=== PATIENT | male | born 1990 | race Asian ===

== ENCOUNTER 2017-05-12 23:28 | Emergency (ER) | payer OTHER ==
[2017-05-12 23:56] LABS: Hematocrit 44 % (42-52); Hemoglobin 14.6 g/dl (14.0-18.0); Mean Corpuscular HGB Conc 33 g/dl (31-36); Mean Corpuscular Hemoglobin 27 pg (27-31); Mean Corpuscular Volume 81 fL (80-94); Mean Platelet Volume 7 um3 (7.4-10.4); Red Blood Count 5.42 10^6/ul (4.0-5.4); Red Cell Distribution Width 14 % (10.5-15)
[2017-05-13 00:18] LABS: BUN/Creatinine Ratio 13.6 (8-20); C Reactive Protein 1.11 mg/L (< 5.00); Calcium 9.7 mg/dL (8.6-10.3); EGFR African American 111.4 (>60); EGFR Non-African American 86.6 (>60); Globulin 2.9 g/dL (2-4); Potassium 3.7 mmol/L (3.5-5.0); Total Bilirubin 0.3 mg/dL (0.2-1.0); Total Protein 6.9 g/dL (6.4-8.9)
--- NOTE | 2017-05-13 00:28 | ED ---
Abdominal Pain/Male - HPI Summary HPI Summary: Pt here w/ diarrhea x 2 weeks and now hematochezia. Associated sx of lower ab discomfort and hyperactive bowels. Has to move bowels within 30 minutes of eating/drinking - non painful. Denies fever, chills, nausea, vomiting, rectal pain/tenderness, trauma to the area by sexual means or other. Urinating well w/ o dysuria, hesitation, flank pain. He denies change in diet and in fact, went a couple of days w/o dairy - no change and when he returned to diary by drinking milk, sx were not worse. He has not tried avoiding gluten yet. Denies preceding h/o anbx use, sick contacts, etc. He was last out of the country to [place] 10 months ago - reports he did have some fever when he initially returned but no bowel issues and this dissipated w/o associated sx. He's been seen by [facility] and stool cx's were ordered. Pt reveals results and appears he was tested for ova, parasites, cryptosporidium, giardia, salmonella, and shigella all negative. Labs are also w/o acute findings of hepatitis, hemorrhage (H&H stable), etc. He has not been tested for c. diff - will assess if possible tonight. He is scheduled for a colonoscopy next week with Dr. Post. Was told if things get worse to go to ED - he came because he is concerned about bleeding. - History of Current Complaint Chief Complaint: EDRectalPain Stated Complaint: BLOOD IN STOOL Time Seen by Provider: 05/12/17 23:37 Hx Obtained From: Patient, Family/Site Supervising Technical Operator - roommate Pain Intensity: 1 - Allergies/Home Medications Allergies/Adverse Reactions: Allergies Allergy/AdvReac Type Severity Reaction Status Date / Time No Known Allergies Allergy Verified 05/12/17 23:33 PMH/Surg Hx/FS Hx/Imm Hx Previously Healthy: Yes Endocrine/Hematology History: Denies: Hx Anticoagulant Therapy, Hx Blood Disorders, Hx Thyroid Disease, Hx Anemia, Hx Unexplained Bleeding, Autoimmune Disease GI History: Denies: Hx Cirrhosis, Hx Crohn's Disease, Hx Diverticulosis, Hx Gall Bladder Disease, Hx Gastroesophageal Reflux Disease, Hx Gastrointestinal Bleed, Hx Hiatal Hernia, Hx Irritable Bowel, Hx Ulcer Infectious Disease History: No Infectious Disease History: Denies: Traveled Outside the [place] in Last 30 Days - Family History Known Family History: Positive: None - no GI issues - Social History Occupation: Student Lives: Dormitory/Roommates Alcohol Use: Rare Hx Substance Use: No Substance Use Type: Reports: None Hx Tobacco Use: No Smoking Status (MU): Never Smoked Tobacco Review of Systems Constitutional: Negative Negative: Fever, Chills, Fatigue - feels well overall Cardiovascular: Negative Negative: Palpitations, Chest Pain Respiratory: Negative Negative: Shortness Of Breath Positive: Abdominal Pain, Diarrhea. Negative: Vomiting, Nausea Genitourinary: Negative Musculoskeletal: Negative Skin: Negative Negative: Bruising Neurological: Negative Negative: Headache, Weakness, Paresthesia, Numbness, Syncope Psychological: Normal All Other Systems Reviewed And Are Negative: Yes Physical Exam Triage Information Reviewed: Yes Vital Signs On Initial Exam: Initial Vitals Temp Pulse Resp BP Pulse Ox 98.0 F 86 15 174/76 99 05/12/17 23:30 05/12/17 23:30 05/12/17 23:30 05/12/17 23:30 05/12/17 23:30 Vital Signs Reviewed: Yes Appearance: Positive: Well-Appearing, No Pain Distress, Well-Nourished Skin: Positive: Warm, Dry - no bruising observed Head/Face: Positive: Normal Head/Face Inspection Eyes: Positive: Normal, EOMI, Conjunctiva Clear - pink ENT: Positive: Normal ENT inspection, Hearing grossly normal, Pharynx normal - mucosa moist, pink Neck: Positive: Supple - no gross thyromegaly Respiratory/Lung Sounds: Positive: Clear to Auscultation, Breath Sounds Present. Negative: Rales, Rhonchi, Wheezes Cardiovascular: Positive: Normal, RRR, S1, S2. Negative: Murmur, Rub Abdomen Description: Positive: No Organomegaly, Soft, Other: - B/L lower abdomen w/ mild TTP -no rebounding; rectum is clear of drainage and JENNYFER w/o palpable hemorrhoid, NTTP - pt's JENNYFER reveals pink mucousy d/c. Negative: CVA Tenderness (R), CVA Tenderness (L), Distended, Guarding Bowel Sounds: Positive: Present Musculoskeletal: Positive: Normal, Strength/ROM Intact Neurological: Positive: Normal, Sensory/Motor Intact, Alert, Oriented to Person Place, Time, CN Intact II-III Psychiatric: Positive: Normal - Harinder Coma Scale Coma Scale Total: 15 Diagnostics - Vital Signs Vital Signs Temp Pulse Resp BP Pulse Ox 05/12/17 23:30 98.0 F 86 15 174/76 99 - Laboratory Lab Results: Lab Results 05/12/17 05/12/17 05/12/17 Range/Units 23:45 23:45 23:45 WBC 7.0 (3.5-10.8) 10^3/ul RBC 5.42 H (4.0-5.4) 10^6/ul Hgb 14.6 (14.0-18.0) g/dl Hct 44 (42-52) % MCV 81 (80-94) fL MCH 27 (27-31) pg MCHC 33 (31-36) g/dl RDW 14 (10.5-15) % Plt Count 222 (150-450) 10^3/ul MPV 7 L (7.4-10.4) um3 Neut % (Auto) 47.0 (38-83) % Lymph % (Auto) 42.1 (25-47) % [place] % (Auto) 7.7 (1-9) % Eos % (Auto) 2.8 (0-6) % Baso % (Auto) 0.4 (0-2) % Absolute Neuts (auto) 3.3 (1.5-7.7) 10^3/ul Absolute Lymphs (auto) 2.9 (1.0-4.8) 10^3/ul Absolute Monos (auto) 0.5 (0-0.8) 10^3/ul Absolute Eos (auto) 0.2 (0-0.6) 10^3/ul Absolute Basos (auto) 0 (0-0.2) 10^3/ul Absolute Nucleated RBC 0 10^3/ul Nucleated RBC % 0 Sodium 142 (133-145) mmol/L Potassium 3.7 (3.5-5.0) mmol/L Chloride 108 (101-111) mmol/L Carbon Dioxide 29 (22-32) mmol/L Anion Gap 5 (2-11) mmol/L BUN 14 (6-24) mg/dL Creatinine 1.03 (0.67-1.17) mg/dL Est GFR ( Amer) 111.4 (>60) Est GFR (Non-Af Amer) 86.6 (>60) BUN/Creatinine Ratio 13.6 (8-20) Glucose 113 H (70-100) mg/dL Lactic Acid 1.1 (0.5-2.0) mmol/L Calcium 9.7 (8.6-10.3) mg/dL Total Bilirubin 0.30 (0.2-1.0) mg/dL AST 20 (13-39) U/L ALT 21 (7-52) U/L Alkaline Phosphatase 58 (34-104) U/L C-Reactive Protein 1.11 (< 5.00) mg/L Total Protein 6.9 (6.4-8.9) g/dL Albumin 4.0 (3.2-5.2) g/dL Globulin 2.9 (2-4) g/dL Albumin/Globulin Ratio 1.4 (1-3) Blood Type Antibody Screen 05/12/17 Range/Units 23:45 WBC (3.5-10.8) 10^3/ul RBC (4.0-5.4) 10^6/ul Hgb (14.0-18.0) g/dl Hct (42-52) % MCV (80-94) fL MCH (27-31) pg MCHC (31-36) g/dl RDW (10.5-15) % Plt Count (150-450) 10^3/ul MPV (7.4-10.4) um3 Neut % (Auto) (38-83) % Lymph % (Auto) (25-47) % [place] % (Auto) (1-9) % Eos % (Auto) (0-6) % Baso % (Auto) (0-2) % Absolute Neuts (auto) (1.5-7.7) 10^3/ul Absolute Lymphs (auto) (1.0-4.8) 10^3/ul Absolute Monos (auto) (0-0.8) 10^3/ul Absolute Eos (auto) (0-0.6) 10^3/ul Absolute Basos (auto) (0-0.2) 10^3/ul Absolute Nucleated RBC 10^3/ul Nucleated RBC % Sodium (133-145) mmol/L Potassium (3.5-5.0) mmol/L Chloride (101-111) mmol/L Carbon Dioxide (22-32) mmol/L Anion Gap (2-11) mmol/L BUN (6-24) mg/dL Creatinine (0.67-1.17) mg/dL Est GFR ( Amer) (>60) Est GFR (Non-Af Amer) (>60) BUN/Creatinine Ratio (8-20) Glucose (70-100) mg/dL Lactic Acid (0.5-2.0) mmol/L Calcium (8.6-10.3) mg/dL Total Bilirubin (0.2-1.0) mg/dL AST (13-39) U/L ALT (7-52) U/L Alkaline Phosphatase (34-104) U/L C-Reactive Protein (< 5.00) mg/L Total Protein (6.4-8.9) g/dL Albumin (3.2-5.2) g/dL Globulin (2-4) g/dL Albumin/Globulin Ratio (1-3) Blood Type A Positive Antibody Screen Pending Result Diagrams: 05/12/17 23:45 05/12/17 23:45 Lab Statement: Any lab studies that have been ordered have been reviewed, and results considered in the medical decision making process. Abdominal Pain Fem Course/Dx - Course Course Of Treatment: Pt here w/ hematochezia after 2 weeks of diarrhea. Has some mild Lower ab pain but no keith rectal pain. Has had labs and stools cx's through [facility] - no acute findings thus far. Pt is scheduled for a colonoscopy next week. Came tonight as he was told if he gets worse, to go to ED. He reports he feels pretty good overall, but was concerned about blood in stool. Labs here tonight are unremarkable for significant GI bleed, hepatitis, etc. A few tests were added tonight that have not yet been checked by [facility] - these include a c. diff stool cx and VERENA, ESR in the event pt has Crohn's, UC or celiac dz. Stool occult is positive. A CT was ordered and is pending to assess for colitis, mass, etc. Pt signed out to Dr. Villatoro in stable condition. - Diagnoses Provider Diagnoses: Hematochezia, Diarrhea Discharge - Discharge Plan Condition: Stable Disposition: OTHER Discharge Disposition Comment: signed out Referrals: [facility] - Yobani SHAH [Primary Care Provider] -
[2017-05-13 01:05] LABS: TSH (Thyroid Stimulating Horm) 7.27 mcIU/mL (0.34-5.60)
[2017-05-13 01:15] LABS: Erythrocyte Sed Rate 12 mm/Hr (0-14)
[2017-05-13] MEDS ORDERED: Iohexol 300* (CONTRAST) 10 ML SDV IV ONE (02:12)
[2017-05-13 02:33] LABS: Free T4 2.44 ng/dL (0.61-1.12)
[2017-05-13 03:32] LABS: Rapid HIV INT CONT QC Line Present; Rapid HIV Kit Lot# H080007
[2017-05-13 03:33] LABS: Manual Entry Verification ABI0007
[2017-05-13] MEDS ORDERED: Omeprazole CAP* 20 MG PO ONE (03:45)
--- NOTE | 2017-05-13 04:20 | ED ---
Perfecto Francois Tiffany, scribed for David Villatoro on 05/13/17 at 0353 . Progress - Progress Note Progress Note: CT Abd/Pel reveals, per radiologist, subpleural reticular-nodular pattern in the lung bases is nonspecific. These findings may reflect early fibrotic change related to drug reaction, or collagen vascular disease. A differential consideration would be small airways inflammation Correlation with history, prior studies, and pulmonary function is recommended. ED physician has reviewed this report. Course/Dx - Course Course Of Treatment: CT Abd/Pel reveals, per radiologist, subpleural reticular- nodular pattern in the lung bases is nonspecific. These findings may reflect early fibrotic change related to drug reaction, or collagen vascular disease. A differential consideration would be small airways inflammation Correlation with history, prior studies, and pulmonary function is recommended. Patient will be discharged with prescription for Protonix and follow up from Dr. Post ( gastroenterology) as soon as possible. The patient is agreeable with this plan. - Diagnoses Provider Diagnoses: Abdominal pain, Rectal bleeding The documentation as recorded by the Perfecto cabrera Tiffany accurately reflects the service I personally performed and the decisions made by Shauna hoover Emmanuel.
[2017-05-13 04:32] VITALS: BP 146/71
--- NOTE | 2017-05-13 08:06 | RAD ---
CLINICAL HISTORY: Diarrhea with hematochezia COMPARISON: None TECHNIQUE: Multiple contiguous axial CT scans were obtained of the abdomen and pelvis after the administration of intravenous contrast. Coronal and sagittal multiplanar reformations are submitted for review. Oral contrast was administered. Delayed images were obtained through the abdomen and pelvis. FINDINGS: LUNG BASES: There is a subpleural pattern of centrilobular nodularity. LIVER: The liver is normal in shape, size, contour, and attenuation. BILE DUCTS: There is no intrahepatic or extrahepatic biliary dilatation. GALLBLADDER: The gallbladder is incompletely distended but is grossly normal. PANCREAS: The pancreas is normal, without mass or ductal dilatation. SPLEEN: Normal in size and appearance. UPPER GI TRACT: Evaluation of the gastrointestinal tract is limited by incomplete gastric distention. The upper GI tract is unremarkable. SMALL BOWEL AND MESENTERY: The small bowel is normal in contour, course, and caliber. There is no obstruction or dilatation. COLON: The colon is normal in contour, course, caliber. There is no pericolonic inflammatory change. ADRENALS: Normal bilaterally. KIDNEYS: The kidneys are normal in shape, size, contour, and axis. There is no hydronephrosis or nephrolithiasis. BLADDER: The bladder is smooth in contour. PELVIC ORGANS: The prostate gland is normal. The seminal vesicles are symmetric. AORTA: The aorta is normal. IVC: Unremarkable LYMPH NODES: There is no lymphadenopathy by size criteria. ABDOMINAL WALL: There is no evidence for abdominal wall hernia. BONES AND SOFT TISSUES: The bones and soft tissues are unremarkable. OTHER: None IMPRESSION: 1. SUBPLEURAL NODULARITY OF THE LUNG BASES BILATERALLY SUGGESTIVE OF AN AIRWAY CENTERED INFECTIOUS OR INFLAMMATORY PROCESS. 2. NO ACUTE CT PATHOLOGY OF THE ABDOMEN OR PELVIS.
== END 2017-05-13 04:31 ==
LOC: ED 23:28
DX: K92.1 Melena (principal); R10.9 Unspecified abdominal pain; R19.7 Diarrhea, unspecified
CPT/HCPCS: 36415; 74177; 80053; 80074; 82150; 82272; 83605; 83690; 83735; 84439; 84443; 85025; 85610; 85652; 85730; 86038; 86140; 86703; 86850; 86900; 86901; 96374; 99285; A9270-GY; Q9967

== ENCOUNTER → 2019-03-14 10:28 | Day surgery (SDC) | payer OTHER ==
[~2019-03-14 10:28] MED LIST: Acetaminophen TAB* 325 MG PO PRN; Benzocaine/Butamben/Tetracain (CETACAINE - SINGLE USE) 5 gm TOPICAL ONE; Buffered Lidocaine 1% SYRIN* 1 ML/SYRINGE INTRADERM ONE; Cisatracurium* 2 MG/ML MDV 5 ML ONE; Dexamethasone IV* 4 MG/ML 1 ML (4 MG) ONE; DiMENhydriNATE IV* 50 MG/ML VIAL IV PUSH PRN; EPHEDrine (Pressors)* 50 MG/ML VIAL ONE; Famotidine IV* 10 MG/ML 2 ML (20 mg) ONE; Glycopyrrolate IV* 0.2 MG/ML 1 ML VIAL ONE; HYDROcodone/ACETAMIN 5-325 MG* 1 TAB PO PRN; Lactated Ringers 1000 ML Bag* 1,000 ML IV SCH; Levalbuterol 0.63MG/3ML NEB* UNIT OF USE INH PRN; Lidocaine 1% INJ* 10 MG/ML 30 ML SDV ONE; Lidocaine 2% JELLY* 20 ML (for OR use) ONE; Lidocaine 2% PF * 5 ML VIAL ONE; Midazolam* 1 MG/ML 2 ML VIAL (2 MG) ONE; Naloxone* 0.4 MG/ML 1 ML VIAL IV PRN; Neostigmine Methylsulfate* 3 MG/3 ML SYRINGE ONE; Ondansetron INJ* 2 MG/ML VIAL IV PRN; Ondansetron INJ* 2 MG/ML VIAL ONE; Propofol* 10 MG/ML 20 ML BTL ONE; Succinylcholine* 20 MG/ML 10 ML VIAL ONE; fentaNYL* 50 MCG/ML 2 ML VIAL (100 MCG VIAL) IV PRN; fentaNYL* 50 MCG/ML 2 ML VIAL (100 MCG VIAL) ONE
[2019-03-14 14:54] VITALS: BP 116/58
--- NOTE | 2019-03-14 22:03 | PRO ---
BRONCHOSCOPY REPORT: DATE OF PROCEDURE: 03/14/19 PROCEDURE PERFORMED: Bronchoscopy with transbronchial biopsy from right lower lobe and right middle lobe. PRE-PROCEDURAL DIAGNOSIS: Multiple pulmonary nodules. ANESTHESIA: General anesthesia. ANESTHESIOLOGIST: Dr. Lozada. DESCRIPTION OF PROCEDURE: Informed consent was obtained from the patient prior to the procedure after all the risks and benefits were thoroughly explained. The patient was intubated with a size 8 endotracheal tube. The patient was noted to have nodular densities projecting from the subepiglottic area and also in the piriform fossa. These were noted on glidoscopic exam prior to intubation. Flexible Olympus bronchoscope was inserted through ET tube for airway inspection. No endobronchial lesions were noted. No evidence of secretions noted. Transbronchial biopsies were obtained from the right middle lobe and right lower lobe subsegments. Seven to eight biopsies were obtained. Specimen was placed in formalin. Tissue sample was also placed in sterile saline for microbiological cultures. Bronchial washings were subsequently obtained from the right middle lobe and superior segment of the right lower lobe. The patient tolerated the procedure well. The patient was extubated and seen in recovery in optimal condition. [id number]/[facility] #: [id number] [facility]
[2019-03-20 16:17] LABS: Case Number CR-19-68577
== END | disposition home or self-care (01) ==
LOC: OR 10:28
PROVIDERS: ATTEND Internal Medicine
DX: J98.4 Other disorders of lung (principal); R91.8 Other nonspecific abnormal finding of lung field; E03.9 Hypothyroidism, unspecified; K51.90 Ulcerative colitis, unspecified, without complications
CPT/HCPCS: 71045; 76000; 87070; 87102; 87116; 87205; 87206; 88305; 88312; 88321; J0330; J1100; J2250; J2405; J2704; J2710; J3010